=== PATIENT | female | born 1980 | race Caucasian/White ===

== ENCOUNTER 2018-10-13 10:35 | Outpatient (CLI) | payer OTHER ==
[~2018-10-13] VITALS: Ht 167.6 cm; Wt 90.9 kg
[~2018-10-13 10:35] MED LIST: PREN1TAB49 PO
[2018-10-13 11:02] VITALS: BP 123/69; PULSE 95; RESP 18; Ht 167.6 cm; Wt 90.9 kg
--- NOTE | 2018-10-13 14:10 | TRIAGE ---
OB Triage Datetime Report Generated by CPN: 10/13/2018 14:10 Datetime: 10/13/2018 13:25 Stage of : OB Triage Datetime: 10/13/2018 13:22 Stage of : OB Triage Datetime: 10/13/2018 13:20 Stage of : OB Triage Datetime: 10/13/2018 12:02 Labor Evaluation Frequency: 0 Monitor Mode: External Pattern: Normal: <= 5 Contractions in 10 Minutes Resting Tone [place]: Relaxed Heart Rate FHR Baseline Rate: 155 Monitor Mode: External US Variability: Moderate 6-25 bpm Accelerations: 10X10 Decelerations: None Category: Category I Pain Assessment Pain Scale: 5 Pain Presence: None/Denies Pain Type: Pressure Pain Location: Perineum Pain Goal: 3 Pain Relief Measures: Comfort Measures Datetime: 10/13/2018 10:52 Stage of : OB Triage Assessment Type: Triage Maternal Assessment Level of Consciousness: Keenly Alert, Responsive DTR's/Clonus: DTRs 2+; No Clonus Headache: Denies Blurred Vision: No Respiratory Effort: Unlabored; Regular Rhythm; Equal Expansion Breath Sounds, Left: Clear and Equal Breath Sounds, Right: Clear and Equal Nausea/Vomiting: Denies RUQ Epigastric Pain: Denies Facial Edema: None Temperature Route: Axillary Fall Risk Assessment History of Falling: (0) No Secondary Diagnosis: (0) No Ambulatory Aid: (0) Bedrest/Nurse Assist IV Therapy: (0) No Gait: (0) Normal/Bedrest/Immobile Mental Status: (0) Oriented to Own Ability Fall Score: 0 Fall Risk Score Definition: No Risk: No action required Labor Evaluation Frequency: 0 Monitor Mode: External Pattern: Normal: <= 5 Contractions in 10 Minutes Resting Tone [place]: Relaxed Monitor Mode: External US Pain Assessment Pain Scale: 6 Pain Presence: Intermittent Pain Type: Cramping Pain Location: Perineum Pain Goal: 3 Pain Relief Measures: Comfort Measures Datetime: 10/13/2018 10:51 Time of Arrival: 10/13/2018 10:30 EGA: 28.2 Arrived By: Ambulatory Arrived From: Dr. Monson Chief Complaint: REFERRED FROM CLINIC FOR PELVIC PRESSURE, DENIES LEAKING, BLEEDING OR UC'S, Movement: Present Contractions: Denies/Absent Rupture of Membranes: Denies Vaginal Bleeding: None Vaginal Discharge: Denies Recent Sexual Intercouse: Denies Abdominal Trauma: Not Applicable Patient Complaints: Cramping; Back Pain Time Provider Notified: 10/13/2018 13:20 Provider Notified: HENRIETTA Initial Plan: MONITOR, CL,
--- NOTE | 2018-10-13 14:48 | PN ---
Triage Information Date/Time 10/13/18 Reason for visit: pelvic pressure Weeks of Gestation 28w2d /Para 21y.o/11y.o/7y.o Hypertention: none Additional information u/a done at the Dr Kenyon office neg Objective Vital Signs Date Temp Pulse Resp B/P (MAP) Pulse Ox O2 O2 Flow FiO2 Time Delivery Rate 10/13/18 98.4 95 18 123/69 11:02 (87) Heart Rate: 140's Heart Rate Comments CAT I Results/Medications Imaging Results CVL 4.2 Disposition: Discharge Assessment/Plan A IUP 28w2d pelvic pressure ( resolved by rest ) P discharge home f/u at her OB clinic JOHN GILL MD Oct 13, 2018 14:48
== END 2018-10-13 13:44 | disposition home or self-care (01) ==
LOC: OBT 10:35 → L-D 10:36 → OBT 13:44
PROVIDERS: ATTEND Obstetrics & Gynecology
DX: O26.893 Other specified pregnancy related conditions, third trimester (principal); R10.2 Pelvic and perineal pain; Z3A.28 28 weeks gestation of pregnancy
CPT/HCPCS: 76817; G0463

== ENCOUNTER 2018-10-27 16:17 | Outpatient (CLI) | payer OTHER ==
[~2018-10-27] VITALS: Ht 167.6 cm; Wt 91.4 kg
[2018-10-27 16:49] VITALS: Ht 167.6 cm; Wt 91.4 kg
[2018-10-27 16:50] VITALS: BP 122/58; PULSE 100; RESP 18
--- NOTE | 2018-10-27 21:23 | TRIAGE ---
OB Triage Datetime Report Generated by CPN: 10/27/2018 20:58 Datetime: 10/27/2018 20:07 Stage of : OB Triage Maternal Assessment Level of Consciousness: Keenly Alert, Responsive DTR's/Clonus: DTRs 2+; No Clonus Headache: Denies Breath Sounds, Left: Clear and Equal Breath Sounds, Right: Clear and Equal Nausea/Vomiting: Denies RUQ Epigastric Pain: Denies Temperature Route: Oral Labor Evaluation Frequency: NONE Monitor Mode: External Resting Tone [place]: Relaxed Heart Rate FHR Baseline Rate: 150 Monitor Mode: External US FHR Baseline Changes: No Baseline Change Variability: Moderate 6-25 bpm Accelerations: 15X15 Decelerations: None Category: Category I Datetime: 10/27/2018 19:00 Labor Evaluation Frequency: x1 Monitor Mode: External Duration (sec)2399: 50 Quality: Mild Resting Tone [place]: Relaxed Heart Rate FHR Baseline Rate: 145 Monitor Mode: External US FHR Baseline Changes: No Baseline Change Variability: Moderate 6-25 bpm Accelerations: 15X15 Decelerations: None Category: Category I Datetime: 10/27/2018 17:58 Labor Evaluation Frequency: none Monitor Mode: External Resting Tone [place]: Relaxed Heart Rate FHR Baseline Rate: 145 Monitor Mode: External US FHR Baseline Changes: No Baseline Change Variability: Moderate 6-25 bpm Accelerations: 15X15 Decelerations: None Category: Category I Datetime: 10/27/2018 17:04 Stage of : OB Triage Assessment Type: Triage Maternal Assessment Level of Consciousness: Keenly Alert, Responsive DTR's/Clonus: DTRs 2+; No Clonus Headache: Denies Blurred Vision: No Respiratory Effort: Unlabored; Regular Rhythm; Equal Expansion Breath Sounds, Left: Clear and Equal Breath Sounds, Right: Clear and Equal Nausea/Vomiting: Denies RUQ Epigastric Pain: Denies Lower Extremities Edema: None Degree: None Upper Extremities Edema: None Degree: None Facial Edema: None Temperature Route: Oral Fall Risk Assessment History of Falling: (0) No Secondary Diagnosis: (0) No Ambulatory Aid: (0) Bedrest/Nurse Assist IV Therapy: (0) No Gait: (0) Normal/Bedrest/Immobile Mental Status: (0) Oriented to Own Ability Fall Score: 0 Fall Risk Score Definition: No Risk: No action required Labor Evaluation Frequency: none Monitor Mode: External Resting Tone [place]: Relaxed Heart Rate FHR Baseline Rate: 150 Monitor Mode: External US FHR Baseline Changes: No Baseline Change Variability: Moderate 6-25 bpm Accelerations: 15X15 Decelerations: None Category: Category I Pain Assessment Pain Scale: 6 Pain Presence: Constant Pain Type: Ache Pain Location: Abdomen (Annotations: pain in the lower abdomen for 1 month) Datetime: 10/13/2018 13:56 Time of Arrival: 10/27/2018 16:10 EGA: 30.2 Arrived By: Ambulatory Arrived From: Dr. Monson Chief Complaint: send from the office due to tachycardia Movement: Present Contractions: Denies/Absent Contractions: occasional for 1 month Rupture of Membranes: Denies Vaginal Bleeding: None Vaginal Discharge: Present Recent Sexual Intercouse: Denies Abdominal Trauma: Not Applicable Patient Complaints: None Time Provider Notified: 10/27/2018 18:52 Provider Notified: Dr Kenyon Initial Plan: EFM Datetime: 10/13/2018 10:52 Fall Score: 0 Fall Risk Score Definition: No Risk: No action required Datetime: 10/13/2018 10:51 EGA: 2
--- NOTE | 2018-10-28 04:25 | PN ---
Triage Information Date/Time Reason for visit: The patient seen in her primary office today, due to tachycardia was sent for further evaluation in triage Weeks of Gestation 30 weeks and 2 days /Para 4 para 3-0-0-3 Diabetes: none Hypertention: none Objective Vital Signs Date Temp Pulse Resp B/P (MAP) Pulse Ox O2 O2 Flow FiO2 Time Delivery Rate 10/27/18 98.8 100 18 122/58 Room Air 16:50 (79) Heart Rate: 140's Contractions: None Disposition: Discharge Assessment/Plan 28 years old -0-0-3 with single intrauterine at 30 weeks and 2 days with [facility] of 01/03/2019 was seen in her primary OB office, was noted that there is a tachycardia up. Patient sent to triage for further evaluation. Currently heart is category 1, no tachycardia. She has no uterine contractions. Ultrasound performed AB of 14, biophysical profile 8 out of 8 out of 8. -Symptoms and sign of labor, preeclampsia, kick count discussed with patient, she voiced understanding. All of her questions answered. -Patient was discharged home in stable condition with the appropriate discharge instructions provided. I would like patient to have close follow-up with her primary physician or outpatient clinic in 1-2 days or return to triage for worsening symptoms or any other urgent concerns. ROSEY RMOAN Oct 28, 2018 04:25
== END 2018-10-27 20:50 | disposition home or self-care (01) ==
LOC: OBT 16:17 → L-D 16:19 → OBT 20:50
PROVIDERS: ATTEND Obstetrics & Gynecology
DX: R00.0 Tachycardia, unspecified (principal)
CPT/HCPCS: 76818; G0463

== ENCOUNTER 2018-12-05 16:32 | Outpatient (CLI) | payer OTHER | END 2018-12-05 20:48 | disposition home or self-care (01) | LOC: OBT 16:32 → L-D 16:32 → OBT 20:48 | PROVIDERS: ATTEND Obstetrics & Gynecology | DX: O62.9 Abnormality of forces of labor, unspecified (principal); Z3A.35 35 weeks gestation of pregnancy | CPT/HCPCS: 76818; 81001; G0463 ==

== ENCOUNTER 2018-12-20 08:24 | Outpatient (CLI) | payer OTHER ==
[~2018-12-20] VITALS: Ht 167.6 cm; Wt 93.4 kg
[2018-12-20 08:53] VITALS: Ht 167.6 cm; Wt 93.4 kg
[2018-12-20 08:54] VITALS: BP 115/64; PULSE 77; RESP 18
== END 2018-12-20 10:30 | disposition home or self-care (01) ==
LOC: OBT 08:24 → L-D 08:24 → OBT 10:30
PROVIDERS: ATTEND Obstetrics & Gynecology
DX: O36.8130 Decreased fetal movements, third trimester, not applicable or unspecified (principal); Z3A.38 38 weeks gestation of pregnancy; O09.522 Supervision of elderly multigravida, second trimester
CPT/HCPCS: 76818; G0463

== ENCOUNTER 2019-02-13 18:33 | Emergency (ER) | payer OTHER ==
[~2019-02-13] VITALS: Ht 167.6 cm; Wt 84.5 kg
[~2019-02-13 18:33] MED LIST changes: +CEPH-443 PO; -PREN1TAB49 PO
[2019-02-13 18:47] VITALS: BP 142/74; PULSE 72; RESP 18; Ht 167.6 cm; Wt 84.5 kg
[2019-02-13] MEDS ORDERED: ACETAMINOPHEN 325 MG TAB PO ONE (20:30)
[2019-02-13] MEDS ORDERED: CEPHALEXIN 500 MG CAP PO ONE (20:30)
== END 2019-02-13 20:23 | disposition home or self-care (01) ==
LOC: FTE 18:33
DX: Z48.89 Encounter for other specified surgical aftercare (principal)
CPT/HCPCS: 99283